=== PATIENT | male | born 1965 | race Caucasian/White ===

== ENCOUNTER 2016-11-28 11:07 | Emergency (ER) | payer MEDICAID ==
[~2016-11-28] VITALS: Ht 177.8 cm; Wt 130.5 kg
[2016-11-28] MEDS ORDERED: SODIUM CHLORIDE 0.9% 1,000 ML IV ONE (13:26)
[2016-11-28] MEDS ORDERED: ATOR20TA9 PO (13:27)
[2016-11-28] MEDS ORDERED: INSU100C5 SQ-INSULIN (13:27)
[2016-11-28] MEDS ORDERED: DULO30CA2 PO (13:27)
[2016-11-28] MEDS ORDERED: INSU100V10 SQ (13:27)
[2016-11-28] MEDS ORDERED: METF850T2 PO (13:27)
[2016-11-28] MEDS ORDERED: LISI-170 PO (13:27)
[2016-11-28] MEDS ORDERED: SODIUM CHLORIDE FLUSH 10ML SYR IVF ONE (13:30)
[2016-11-28 14:06] VITALS: BP 122/69
[2016-11-28 14:30] LABS: BLOOD UREA NITROGEN 16 mg/dL (7-18)
[2016-11-28 14:33] LABS: ASPARTATE AMINO TRANSFERASE 17 U/L (15-37)
[2016-11-28 14:59] LABS: DIFF TOTAL CELLS COUNTED 100 CELL DIFF
[2016-11-28 15:00] LABS: WHITE BLOOD COUNT 99.6 x10^3/uL (3.4-10)
[2016-11-28 15:54] LABS: VERIFY COUNTS? YES
[2016-11-28 16:00] LABS: SMUDGE CELLS 1+
== END 2016-11-28 16:41 | disposition home or self-care (01) ==
LOC: ED 14:49
DX: R53.1 Weakness (principal); R42 Dizziness and giddiness; I10 Essential (primary) hypertension; E11.9 Type 2 diabetes mellitus without complications; E78.5 Hyperlipidemia, unspecified
CPT/HCPCS: 36415; 70450; 80053; 83605; 85025; 85610; 85730; 93005; 96360; 99285; J7030